=== PATIENT | female | born 1950 | race Caucasian/White ===

== ENCOUNTER 2024-08-10 09:37 | Emergency (ER) | payer MEDICARE, BC, SELFPAY ==
[2024-08-10 09:42] VITALS: BP 150/65
[2024-08-10 11:32] LABS: % Eosinophils 1.6 % (0-6); % Immature Granulocytes 0.2 % (0-0.5); % Lymphocytes 20.4 % (20.5-51.1); % Monocytes 5.9 % (1.7-9.3); % Neutrophils 70.9 % (42.2-75.2); Absolute Basophils 0.1 10^3/uL (0-0.2); Absolute Eosinophils 0.1 10^3/uL (0-0.7); Absolute Lymphocytes 1.8 10^3/uL (1.2-3.4); Absolute Monocytes 0.5 10^3/uL (0.1-0.6); Absolute Neutrophils 6.2 10^3/uL (1.4-6.5); Hematocrit 48.2 % (37.0-47.0); Hemoglobin 16.1 g/dL (12.0-16.0); Mean Corp Hgb Conc. 33.4 g/dL (33.0-37.0); Mean Corpuscular Volume 80.7 fL (81.0-99.0); Nucleated Red Blood Cells % 0 %; Platelet Count 435 10^3/uL (130-400); Red Blood Cell Count 5.97 10^6/uL (4.20-5.40); Red Cell Dist. Width 15.7 % (11.5-14.5); White Blood Cell Count 8.8 10^3/uL (4.8-10.8)
[2024-08-10 11:37] VITALS: BP 146/74
[2024-08-10 12:00] VITALS: BP 148/73
--- NOTE | 2024-08-10 12:15 | ED.GENMED ---
History of Present Illness
General
Chief Complaint: Cardiac Symptoms
Source: patient
Exam Limitations: none
Time Seen by Provider: 08/10/24 11:01
Nursing documentation reviewed up to this point in time: agreed with
History of Present Illness
History of Present Illness:
74-year-old female with past ministry of hypertension presenting to the emergency department today with concerns of chest pain that radiated in down the left arm into the left upper back has some mild shortness of breath associated. Symptoms been
ongoing for a week but is somewhat intermittent. Denies any specific palliation or provocation denies any diaphoresis or vomiting.
Review of Systems
Review of Systems
Allergies reviewed?: Yes
All Other Systems: ROS reviewed and negative except as documented in HPI and ROS
Phy Exam
Physical Exam
Physical Exam:
GENERAL: Alert , in no apparent distress
EYE: pupils equal and reactive
NECK: Supple, no significant adenopathy.
ENT: o/p clr, mmm.
CARDIAC: Regular rate and rhythm .
LUNGS: Clear breath sounds bilaterally, no acute respiratory distress, no wheezes/rales/rhonchi
ABDOMEN: Soft, without focal tenderness, no r/g, no cvat
NEUROLOGICAL: Alert and oriented, no focal neuro deficits
SKIN: Warm and dry, skin intact.
MUSCULOSKELETAL: No edema, well perfused.
PSYCH: Normal and appropriate interaction.
Course
Orders/Labs/Results
Orders:
Orders
08/10/24
Electrocardiogram (*1) Stat
Comment: ALREADY DONE
08/10/24 09:38
Electrocardiogram (*1) Urgent
Reason for Study: Chest Pain
EKG- Treatment ONCE
08/10/24 11:09
Chest [CR Chest - 2 Views ] Urgent
Comment:
Reason For Exam: cp
08/10/24 11:25
Complete Blood Count/With Diff Urgent
08/10/24 11:54
Venous Doppler Lwr Ext Rt [US Periph Venous LOWER Ext RT] Urgent
Comment:
Reason For Exam: right leg pain lack of activity
08/10/24 12:04
Comprehensive Metabolic Panel Urgent
D-Dimer Urgent
08/10/24 12:15
Aspirin 325 mg PO NOW STA
08/10/24 13:35
Ketorolac [Toradol] 15 mg IV NOW STA
08/10/24 13:45
Troponin I Urgent
Abnormal Lab Results
08/10/24 08/10/24
11:25 12:04
RBC 5.97 H 10^6/uL
(4.20-5.40)
Hgb 16.1 H g/dL
(12.0-16.0)
Hct 48.2 H %
(37.0-47.0)
MCV 80.7 L fL
(81.0-99.0)
RDW 15.7 H %
(11.5-14.5)
Plt Count 435 H 10^3/uL
(130-400)
Lymphocytes % 20.4 L %
(20.5-51.1)
BUN 24 H mg/dl
(7-17)
Glucose 112 H mg/dl
(70-99)
08/10/24 11:25
08/10/24 12:04
Vital Signs
Initial and Last Documented VS:
Initial Vital Signs
Temp Pulse Resp BP Pulse Ox
98.8 F 82 18 150/65 95
08/10/24 09:42 08/10/24 09:42 08/10/24 09:42 08/10/24 09:42 08/10/24 09:42
Last Documented Vital Signs
Temp Pulse Resp BP Pulse Ox
98.8 F 74 24 154/81 95
08/10/24 09:42 08/10/24 14:45 08/10/24 14:30 08/10/24 14:00 08/10/24 14:45
MDM/Problems Addressed
MDM/Problems Addressed:
74-year-old female presenting to the emergency department today with concerns of left chest arm and upper back discomfort that seems to be intermittent without any specific palliation or provocation with associated mild shortness of breath. On
arrival vital signs are normal patient no distress patient labs. Here workup without emergent findings labs unremarkable other than slight elevation in BUN and creatinine troponin negative EKG unchanged ultrasound of the right leg without evidence
of DVT she did complain of some right leg pain. Chest x-ray negative D-dimer negative blood clot very unlikely ACS seems to be very unlikely. Seems to be worse with some movements and positioning. Musculoskeletal cause seems to be more likely she
does not follow-up with her pain management doctor in the next week or so. Does have a long history of musculoskeletal issues. Patient vies for close outpatient follow-up with pain management as well as cardiology. Return precautions given.
*Critical Care Note
Total Time (30-74mins, 75-104mins- exclusive of procedures): Not Applicable
ED Attending Note
-
Portions of this chart may have been created with voice recognition software.� Occasional wrong word or��sound alike� substitutions may have occurred due to the inherent limitations of voice recognition software.
Discharge Plan
Departure
Patient Disposition: Home (Routine Discharge)
Date of Disposition: 08/10/24
Time of Disposition: 15:25
Patient with high blood pressure during this ER visit?: No
Condition: Good
Covid-19: Not Applicable
Discharge Problem:
Chest pain
Instructions: Chest Pain CBC Follow Up
Prescriptions:
New
meloxicam 15 mg tablet
15 mg PO DAILY 14 Days Qty: 14 0RF
Referrals:
Jarvis Castro MD [Active] - Follow up in 10 days
Meron Foley MD [Family Provider] -
Activity Restrictions/Additional Instructions:
You came to the emergency department today with concerns of discomfort your chest arm and back. This could be a radicular pain. Please follow closely with pain management as well as cardiology. Return for any worsening, new or concerning symptoms.
Interventions
Interventions:
*Risk Screen - Suicide Last Done: 08/10/24 09:42
*General Assessment Last Done: 08/10/24 09:42
*Neglect/Abuse Screening Last Done: 08/10/24 09:42
*ED COVID-19 Vaccine History Last Done: 08/10/24 12:00
ED- Pulmonary Assessment Last Done: 08/10/24 12:00
ED- Cardiac Assessment Last Done: 08/10/24 12:00
Discharge Date and Time
Print Language: PASHTO
[2024-08-10 12:39] LABS: D-Dimer < 0.27 ug/mlFEU (0.00-0.50)
[2024-08-10 12:45] LABS: ALT (SGPT) 28 U/L (0-35); AST (SGOT) 31 U/L (14-36); Albumin 4.3 g/dl (3.5-5.0); Alkaline Phosphatase 77 U/L (38-126); Blood Urea Nitrogen 24 mg/dl (7-17); Calcium 9.4 mg/dl (8.4-10.2); Carbon Dioxide 28 mmol/L (22-30); Chloride 100 mmol/L (98-107); Glucose 112 mg/dl (70-99); Potassium 3.7 mmol/L (3.5-5.1); Sodium 137 mmol/L (135-145); Total Bilirubin 0.9 mg/dl (0.2-1.3); Total Protein 6.9 g/dl (6.3-8.2); eGFR > 60.00
[2024-08-10] MEDS: ASPIRIN 325 MG PO (13:39)
[2024-08-10] MEDS: TORADOL 15 MG IV (13:39)
[2024-08-10 13:45] VITALS: BP 152/86
[2024-08-10 14:00] VITALS: BP 154/81
[2024-08-10 14:18] LABS: Troponin I < 0.012 ng/ml
== END 2024-08-10 16:00 | disposition home or self-care (01) ==
LOC: EMR 09:37
PROVIDERS: Physician Assistant; EMERGENCY PHYSICIAN Emergency Medicine; FAMILY PHYSICIAN Family Medicine
DX: R07.9 Chest pain, unspecified (principal); R06.02 Shortness of breath; M79.604 Pain in right leg; I10 Essential (primary) hypertension
CPT/HCPCS: 99285; 96374; 71046; 80053; 84484; 85025; 85379; 93005; 93971